=== PATIENT | male | born 1990 | race American Indian/Alaskan Native ===

== ENCOUNTER 2016-08-09 09:49 | Emergency (ER) | payer SELFPAY ==
[2016-08-09] MEDS ORDERED: GEODON IM ONE (10:23)
[2016-08-09 12:04] VITALS: BP 113/69
--- NOTE | 2016-08-09 12:08 | Emergency Department Report ---
ED ENT HPI - General Chief complaint: Sore Throat Stated complaint: SORE THROAT/BODY ACHES/PAIN/CHEST PAIN Time Seen by Provider: 08/09/16 12:06 Source: patient Mode of arrival: Ambulatory Limitations: No Limitations - History of Present Illness Initial comments: PT states he started having symptoms of strep throat last night. PT denies any known sick contacts. PT states his symptoms did improve with Dayquil and throat spray MD complaint: sore throat Onset/Timin -: Gradual, days(s) Location: throat Severity scale (0 -10): 7 Quality: sharp Improves with: other medication Worsens with: swallowing, eating Associated Symptoms: fever, pain with swallowing, sore throat - Related Data Previous Rx's Medication Instructions Recorded Last Taken Type Acyclovir [Zovirax Tab] 400 mg PO BID #60 tab 04/19/15 Unknown Rx Amoxicillin 500 mg PO BID #20 capsule 08/09/16 Unknown Rx Ibuprofen [Motrin] 600 mg PO Q8H PRN #15 tablet 08/09/16 Unknown Rx Allergies Allergy/AdvReac Type Severity Reaction Status Date / Time No Known Allergies Allergy Verified 08/09/16 11:59 ED Dental HPI - General Chief complaint: Sore Throat Stated complaint: SORE THROAT/BODY ACHES/PAIN/CHEST PAIN Time Seen by Provider: 08/09/16 12:06 Source: patient Mode of arrival: Ambulatory Limitations: No Limitations - Related Data Previous Rx's Medication Instructions Recorded Last Taken Type Acyclovir [Zovirax Tab] 400 mg PO BID #60 tab 04/19/15 Unknown Rx Amoxicillin 500 mg PO BID #20 capsule 08/09/16 Unknown Rx Ibuprofen [Motrin] 600 mg PO Q8H PRN #15 tablet 08/09/16 Unknown Rx Allergies Allergy/AdvReac Type Severity Reaction Status Date / Time No Known Allergies Allergy Verified 08/09/16 11:59 ED Review of Systems ROS: Stated complaint: SORE THROAT/BODY ACHES/PAIN/CHEST PAIN Other details as noted in HPI Comment: All other systems reviewed and negative Constitutional: fever, malaise. denies: chills ENT: throat pain Respiratory: denies: cough Gastrointestinal: denies: abdominal pain, nausea, vomiting Musculoskeletal: myalgia, other (whole body aches ) Hematological/Lymphatic: swollen glands ED Past Medical Hx - Past Medical History Additional medical history: herpes - Surgical History Past Surgical History?: No - Social History Smoking Status: Current Some Day Smoker Substance Use Type: Alcohol - Medications Home Medications: Home Medications Medication Instructions Recorded Confirmed Last Taken Type Acyclovir [Zovirax Tab] 400 mg PO BID #60 tab 04/19/15 Unknown Rx Amoxicillin 500 mg PO BID #20 capsule 08/09/16 Unknown Rx Ibuprofen [Motrin] 600 mg PO Q8H PRN #15 tablet 08/09/16 Unknown Rx ED Physical Exam - General Limitations: No Limitations General appearance: alert, in no apparent distress - Head Head exam: Present: atraumatic, normocephalic, normal inspection - Eye Eye exam: Present: normal appearance, EOMI. Absent: conjunctival injection - ENT ENT exam: Present: mucous membranes moist, TM's normal bilaterally, normal external ear exam - Expanded ENT Exam Expanded Throat exam: Positive: tonsillar erythema, tonsillomegaly. Negative: tonsillar exudate - Neck Neck exam: Present: normal inspection, tenderness, full ROM, lymphadenopathy - Respiratory Respiratory exam: Present: normal lung sounds bilaterally. Absent: respiratory distress, wheezes, rales, rhonchi, stridor - Cardiovascular Cardiovascular Exam: Present: regular rate, normal rhythm, normal heart sounds - GI/Abdominal GI/Abdominal exam: Present: soft. Absent: tenderness - Extremities Exam Extremities exam: Present: normal inspection, full ROM - Back Exam Back exam: Present: normal inspection, full ROM. Absent: tenderness, CVA tenderness (R), CVA tenderness (L) - Neurological Exam Neurological exam: Present: alert, oriented X3, normal gait - Psychiatric Psychiatric exam: Present: normal affect, normal mood - Skin Skin exam: Present: warm, dry, intact ED Course Vital Signs 08/09/16 12:01 Temperature 99.1 F Pulse Rate 87 Respiratory 16 Rate Blood Pressure 113/69 O2 Sat by Pulse 99 Oximetry - Reevaluation(s) Reevaluation #1: 08/09/16 12:17 PT aware of dx and plan of care. PT has no questions at this time. - Pulse Oximetry Interpretation Digit-Finger Initial Pulse Oximetry Readin Actions Taken: none ED Medical Decision Making - Differential Diagnosis viral uri, strep pharyngitis Critical care attestation.: If time is entered above; I have spent that time in minutes in the direct care of this critically ill patient, excluding procedure time. ED Disposition Clinical Impression: Pharyngitis Qualifiers: Pharyngitis/tonsillitis etiology: unspecified etiology Qualified Code(s): J02.9 - Acute pharyngitis, unspecified Disposition: DISCHARGED TO HOME OR SELFCARE Is pt being admited?: No Does the pt Need Aspirin: No Condition: Stable Instructions: Pharyngitis (ED), Strep Throat (ED) Additional Instructions: Finish all of your antibiotics Replace your toothbrush Prescriptions: Amoxicillin 500 mg PO BID #20 capsule Ibuprofen [Motrin] 600 mg PO Q8H PRN #15 tablet PRN Reason: Pain Referrals: REHAN DICKSON MD [Staff Physician] - 3-5 Days [facility] [Outside] - 3-5 Days Time of Disposition: 12:18
[2016-08-09] MEDS ORDERED: TRIMOX PO ONE (12:13)
[2016-08-09] MEDS ORDERED: MOTRIN PO ONE (12:13)
== END 2016-08-09 12:26 | disposition home or self-care (01) ==
LOC: ED 09:49
DX: J02.9 Acute pharyngitis, unspecified (principal)
CPT/HCPCS: 99282; J3486